=== PATIENT | female | born 1970 | race Caucasian/White ===

== ENCOUNTER 2024-01-02 17:57 | Emergency (ER) | payer OTHER ==
[~2024-01-02] VITALS: Ht 162.6 cm; Wt 83.2 kg
[2024-01-02 18:02] VITALS: BP 102/69; PULSE 74; RESP 18; TEMP 97.9
[2024-01-02] MEDS ORDERED: IBUP-1554 PO (18:46)
[2024-01-02] MEDS ORDERED: CORTSUSP AS (18:46)
[2024-01-02] MEDS ORDERED: ACET-2080 PO (18:46)
[2024-01-02] MEDS ORDERED: CEPH-558 PO (18:46)
== END 2024-01-02 18:50 | disposition home or self-care (01) ==
LOC: EMS 17:59
DX: H66.92 Otitis media, unspecified, left ear (principal); H60.92 Unspecified otitis externa, left ear
CPT/HCPCS: 99283; Z7502

== ENCOUNTER 2024-11-04 09:59 | Emergency (ER) | payer OTHER ==
[~2024-11-04] VITALS: Ht 167.6 cm; Wt 84.5 kg
[~2024-11-04 09:59] MED LIST: ACET-2080 PO; CEPH-558 PO; CORTSUSP AS; IBUP-1554 PO
[2024-11-04 10:03] VITALS: TEMP 98.7
[2024-11-04 10:15] VITALS: BP 106/75; PULSE 85; RESP 18; O2SAT 99
[2024-11-04 10:15] LABS: COVID AG,FIA SOURCE NASAL SWAB
[2024-11-04 10:23] LABS: RAPID GROUP A STREP NEGATIVE (NEGATIVE)
[2024-11-04 10:34] LABS: INFLUENZA TYPE A NEGATIVE FOR TYPE A (NEGATIVE); INFLUENZA TYPE B NEGATIVE FOR TYPE B (NEGATIVE); SARS-COV2 (COVID) ANTIGEN,FIA Negative (Negative)
[2024-11-04] MEDS ORDERED: AMOX500C2 PO (11:26)
[2024-11-04] MEDS: OXYMETAZOLINE HCL 0.05% 15 ML NASAL SPRAY NASAL ONE (11:43)
== END 2024-11-04 12:01 | disposition home or self-care (01) ==
LOC: EMS 09:59
DX: H66.92 Otitis media, unspecified, left ear (principal); Z20.822 Contact with and (suspected) exposure to COVID-19
CPT/HCPCS: 71045; 87430; 87804; 99284